=== PATIENT | male | born 1975 | race African-American/Black ===

== ENCOUNTER 2017-06-20 18:10 | Inpatient (IN) | payer MEDICAID ==
[~2017-06-20] VITALS: Ht 172.7 cm; Wt 59.9 kg
[~2017-06-20 18:10] MED LIST: ADVAIR DISKUS1 DS1 IH; CLINDAMYCIN HC300 MG PO; COL100 PO; DOXYCYCLINE MO100 MG PO; KEP500 PO; KLO1 PO; KLONOPIN1 MG PO; LAC PO; LEVAQUIN750 MG PO; LORAZEPAM1 PO; MEDDP PO; MULTIVITAMIN1 SGL PO; NORCO1 TA2 PO; QUETIAPINE FUM200 MG PO; SEROQUEL PO; SEROQUEL100 MG PO; SEROQUEL400 M1 PO; SEROQUEL50 MG PO; TYLENOL W/CODEI30 M
--- NOTE | 2017-06-20 18:22 | NUR ---
PT BIB [facility] FOR SEIZURE, PT CAME FROM [facility] WHO IS CURRENTLY ON A 72 HOUR HOLD, [facility] SITTER AT BEDSIDE, PER MEDIC PT APPROACHED STAFF AND HAD 2 SEIZURE EPISODES AFTER PT WAS ASSISTED TO THE GROUND, PER MEDIC EPISODE LASTED FOR 1 MINUTE, MEDIC REPORTS NO POST ICTAL PHASE, STS PT HAD ANOTHER EPISODE WHICH LASTED APPROX 20 SECONDS EN ROUTE, MEDIC REPORTS [facility] STAFF ADMINISTERED 2 MG ATIVAN IM, PER MEDIC HR 106 OTHERWISE VSS EN ROUTE WITH BS 102, PT ARRIVED APPEARING LETHARGIC BUT EASILY AROUSABLE TO VERBAL STIMULI, PT AAOX3, PT REORIENTED TO PLACE, PT REPORTS "I USED TO BE ON KEPPRA, KLONOPIN AND SEROQUEL BUT I BEEN OUT FOR 3 WEEKS", PT RESP EVEN AND UNLABORED, IN NO ACUTE DISTRESS, IN FULL VIEW OF NURSING STATION AND [facility] SITTER AT BEDSIDE, SIDE RAILS UPX2 WITH SEIZURE PADS IN PLACE, PT PLACED ON FULL MONITORS, CALL LIGHT WITHIN REACH
--- NOTE | 2017-06-20 18:46 | NUR ---
MSE COMPLETED BY DR. ROBIN, LAB AT BEDSIDE FOR BLOOD DRAW AT THIS TIME, SITTER AT BEDSIDE
--- NOTE | 2017-06-20 18:54 | NUR ---
PER DR. ROBIN PT AWAKE, NO NEED FOR BAIG CATHETER IF PT IS ABLE TO PROVIDE URINE SAMPLE ON HIS OWN
--- NOTE | 2017-06-20 19:15 | NUR ---
PT TAKEN TO CT VIA [facility].
[2017-06-20 19:23] LABS: PLATELET COUNT 218 x10^3mcL (130-400)
[2017-06-20 19:32] LABS: CALCIUM 8.7 mg/dL (8.5-10.1); CHLORIDE SERUM 105 mmol/L (98-107); CREATININE SERUM 0.8 mg/dL (0.7-1.3); GFR1 > 60 mL/min; GLUCOSE SERUM 112 mg/dL (74-106); SODIUM SERUM 142 mmol/L (136-145)
[2017-06-20 19:33] LABS: ALBUMIN 4.1 g/dL (3.4-5.0); CARBON DIOXIDE 27.3 mmol/L (21-32); POTASSIUM SERUM 3.8 mmol/L (3.5-5.1)
[2017-06-20 19:38] LABS: RED CELL DISTRIBUTION WIDTH 25.2 % (11.5-14.5)
[2017-06-20 19:44] LABS: ALKALINE PHOSPHATASE 43 U/L (46-116); ALT/SGPT 28 U/L (16-63); BILIRUBIN TOTAL 0.23 mg/dL (0.20-1.00); TOTAL PROTEIN, SERUM 7.4 g/dL (6.4-8.2)
[2017-06-20 20:01] LABS: BAND NEUTROPHIL 1 % (0-10); BASOPHIL 0 % (0-2); MONOCYTE 10 % (0-7); SEGMENTED NEUTROPHILS 38 % (37-75); ovalocyte/elliptocyte 1+; rbc morphology (normal/abnorm) ABNORMAL (NORMAL); target cell (codocyte) 1+
[2017-06-20 20:02] LABS: PLATELET MORPHOLOGY PLATELETS NORMAL
[2017-06-20 20:09] LABS: CHOLESTEROL 202 mg/dL (<200)
--- NOTE | 2017-06-20 20:10 | NUR ---
MEDICATED PT FOR "ITCHINESS" AND INITIATED BANANNA BAG @250ML/HR. PLEASE SEE EMAR.
--- NOTE | 2017-06-20 20:18 | NUR ---
PT REFUSED BAIG. PER PT, "I CAN PEE ON MY OWN". DR ROBIN MADE AWARE.
[2017-06-20 20:21] LABS: AST/SGOT 25 U/L (15-37)
[2017-06-20 20:35] LABS: microscopic required? YES; urine erythrocyte NEGATIVE (NEGATIVE)
[2017-06-20 20:44] LABS: AMPHETAMINE QUAL UR NONE DETECTED (NEG <=1000)
[2017-06-20 20:54] LABS: CHOLESTEROL/HDL RATIO 1.8; MAGNESIUM 1.8 mg/dL (1.8-2.4); PHOSPHOROUS 3.7 mg/dL (2.5-4.9)
[2017-06-20 20:57] LABS: T3 TOTAL 0.78 ng/mL
--- NOTE | 2017-06-20 21:03 | NUR ---
REPORT GIVEN TO ELIECER WHITTAKER TO ASSUME TO CARE OF THE PT.
[2017-06-20 21:06] LABS: FREE T4 0.75 ng/dL (0.76-1.46); FREE THYROXINE INDEX 1.9 ug/dL (1.4-4.5)
[2017-06-20 21:58] VITALS: BP 96/61
--- NOTE | 2017-06-20 22:10 | NUR ---
RECEIVED PATIENT FROM ED VIA GUERNEY, PATIENT DROWSY REACTIVE TO VERBAL STIMULI, WATERWORKS PUMP STATION OPERATOR FROM [facility] AT BEDSIDE, TELE # 15 SR, IV ACCESS TO LEFT FOOT, NO C/O PAIN AT THIS TIME, ORIENTED PATIENT TO ROOM AND SURROUNDINGS, BED IN LOW POSITION, BED RAILS UP X 2, CALL LIGHT WITHIN REACH, WILL EDORSE CARE TO PRIMARY NURSE PANFILO GONZÁLES
--- NOTE | 2017-06-20 22:20 | NUR ---
[facility] PT DROWSY, BUT AROUSABLE WITH VERBAL STIMULI. SZ PRECAUTIONS IN PLACE. PT DENIES SUICIDAL IDEATION AT THIS TIME. TELE #15, NSR, DENIES CHEST PAIN. PULSES PALPABLE, NO EDEMA PRESENT. LUNG SOUNDS CTA, BREATHING ON RA, NO RESP DISTRESS NOTED. ABD SOFT AND NONDISTENDED, BOWEL SOUNDS ACTIVE. VOIDS ADEQUATELY. GENERALIZED WEAKNESS. SKIN IS INTACT. NO PAIN OBSERVED AT THIS TIME. BANANA BAG INFUSING TO LEFT FOOT. ORIENTED PT TO ROOM AND SURROUNDINGS. BED IN LOWEST SETTINGS, SIDE RAILS UP X2, CALL LIGHT WITHIN REACH. SITTER AT BEDSIDE. WILL CONTINUE TO MONITOR.
--- NOTE | 2017-06-21 03:51 | NUR ---
PT APPEARS RESTLESS AND MILDLY AGITATED. PT REQUESTING ATIVAN AT THIS TIME. ADMINISTERED ATIVAN ORDERED. WILL CONTINUE TO MONITOR. NO RESP DISTRESS OBSERVED. SITTER AT BEDSIDE.
[2017-06-21 06:21] VITALS: BP 101/62
[2017-06-21 06:38] LABS: BASOPHIL % 0.7 % (0-2); PLATELET COUNT 177 x10^3mcL (130-400)
[2017-06-21 06:42] LABS: CALCIUM 8.1 mg/dL (8.5-10.1); CARBON DIOXIDE 23.6 mmol/L (21-32); CHLORIDE SERUM 107 mmol/L (98-107); CREATININE SERUM 0.8 mg/dL (0.7-1.3); GFR1 > 60 mL/min; GLUCOSE SERUM 82 mg/dL (74-106); MAGNESIUM 2.1 mg/dL (1.8-2.4); PHOSPHOROUS 3.1 mg/dL (2.5-4.9); POTASSIUM SERUM 4.2 mmol/L (3.5-5.1); SODIUM SERUM 141 mmol/L (136-145)
[2017-06-21 06:48] LABS: RED CELL DISTRIBUTION WIDTH 25.5 % (11.5-14.5)
--- NOTE | 2017-06-21 07:36 | NUR ---
PT SLEPT WELL THROUGHOUT THE NIGHT. SEIZURE PRECAUTIONS MAINTAINED. NO SEIZURE ACTIVITY NOTED DURING SHIFT. NO RESP DISTRESS NOTED, NO SIGNS OF PAIN OBSERVED. IVF INFUSING WELL. SITTER AT BEDSIDE. CALL LIGHT WITHIN REACH. CARE ENDORSED TO AM NURSE.
--- NOTE | 2017-06-21 07:43 | NUR ---
RECEIVED PT SITTING UP IN BED PREPARING TO EAT BREAKFAST. SPEECH IS CLEAR. STATES THAT HE FEELS A LITTLE BETTER SINCE HE WAS ABLE TO GET SOME SLEEP. IV TO L FOOT APPEARS PATENT AND IS INFUSING WELL. SITTER AT BED SIDE. NO REPORTED SEIZURE ACTIVITY SINCE ADMISSION ACCORDING TO EXPORT SALES ASSISTANT. BED IN LOWEST POSITION. CALL LIGHT WITHIN REACH. ENCOURAGED TO CALL FOR ASSISTANCE WHEN NEEDED. WILL CONTINUE TO MONITOR
--- NOTE | 2017-06-21 08:35 | NUR ---
AM ROUNDS DONE. PER DR. REED, PT WILL TRANSFER TO ANOTHER FACILITY DUE TO THE [facility]ALTH[facility]ARE [facility] PT IS APART OF. PT WAS AWAKE AND ALERT AT THIS TIME, AND AGREES TO PLAN OF CARE.
--- NOTE | 2017-06-21 08:45 | NUR ---
PT C/O BACK AND NECK PAIN 04/01. ENCOURAGED PT TO REPOSITION FOR COMFORT AND TO TAKE DEEP BREATHES TO ENCOURGE RELAXATION. GIVEN MORPHINE IVP PRN. CALL LIGHT WITHIN REACH, SITTER AT BEDSIDE. WILL CONTINUE TO MONITOR
[2017-06-21 09:29] VITALS: BP 109/71
--- NOTE | 2017-06-21 11:06 | NUR ---
PT RESTING IN BED WATCHING TV. NO APPARENT SIGNS OF ACUTE DISTRESS NOTED AT THIS TIME. RESPIRATIONS EVEN AND UNLABORED. SITTER AT BED SIDE. CALL LIGHT WITHIN REACH. BED IN LOWEST POSITION. WILL CONTINUE TO MONITOR
--- NOTE | 2017-06-21 12:33 | NUR ---
IN PT'S ROOM ACTING SITTER AT THIS TIME. PT IS CURRENTLY ASLEEP RESTING, NO APPARENT SIGNS OF ACUTE DISTRESS NOTED; RESPIRATIONS EVEN AND UNLABORED. IV APPEARS PATENT AND IS INFUSING WELL TO L FOOT WHICH WAS PUT IN IN THE ER YESTERDAY.
--- NOTE | 2017-06-21 12:50 | NUR ---
DISCHARGE PLANNING STAFF CAME IN A WOKE UP PT ABRUPTLY. UPON WAKING UP FROM NAP, PT STATED THAT HE FELT VERY ANXIOUS. PROVIDED SUPPORT AND VENTILATION OF FEELINGS, AND ENCOURAGED TO TAKE DEEP BREATHES. GAVE PT ATIVAN IVP PRN. TRAFFIC DIRECTOR IS CURRENTLY SITTING AT [facility] SITTER, WILL CONTINUE TO MONITOR
--- NOTE | 2017-06-21 13:12 | NUR ---
PT STATED THAT HE WAS STILL HUNGRY. WAS GIVEN SANDWICH
[2017-06-21 17:00] VITALS: BP 111/72
--- NOTE | 2017-06-21 19:15 | NUR ---
PT A/O X4. SEIZURE PRECAUTIONS IN PLACE. PT DENIES SUICIDAL IDEATION AT THIS TIME. TELE #15, NSR AT 77, DENIES CHEST PAIN. PULSES PALPABLE, NO EDEMA PRESENT. LUNG SOUNDS CTA, ON RA, DENIES SOB. BOWEL SOUNDS ACTIVE, ABD SOFT AND NONDISTENDED, DENIES N/V. VOIDS ADEQUATELY. GENERALIZED WEAKNESS. SKIN IS INTACT. PT DENIES PAIN AT THIS TIME. IVF INFUSING WELL TO RIGHT FOOT, NS @ 100 ML/HR. SITTER AT BEDSIDE. BED IN LOWEST SETTING, SIDE RAILS UP X2, CALL LIGHT WITHIN REACH. WILL CONITNUE TO MONITOR.
[2017-06-21 21:00] VITALS: BP 122/78
--- NOTE | 2017-06-21 21:58 | NUR ---
PT IS VERY AGITATED AT THIS TIME. PT STATES HE WANTS TO "GO OUTSIDE TO SMOKE CIGARETTES." PT ATTEMPTING TO LEAVE THE HOSPITAL. INSTRUCTED PT TO REMAIN IN BED FOR HIS SAFETY AND TO TAKE DEEP BREATHS FOR RELAXATION. ADMINISTERED ATIVAN IV ORDERED. SITTER AT BEDSIDE. WILL CONTINUE TO MONITOR.
--- NOTE | 2017-06-22 01:46 | NUR ---
PT ASLEEP AT THIS TIME, BREATHING EVEN AND UNLABORED WITH NO RESP DISTRESS NOTED. NO SIGNS OF PAIN OBSERVED. IVF INFUSING WELL. SITTER AT BEDSIDE. WILL CONTINUE TO MONITOR.
--- NOTE | 2017-06-22 06:29 | NUR ---
PT SLEPT AT INTERVALS THROUGHOUT THE NIGHT. PT WAS AGITATED AT TIMES, MEDICATED WITH ATIVAN ORDERED. NO RESP DISTRESS NOTED, NO SIGNS OF PAIN OBSERVED. IVF INFUSING WELL. SITTER AT BEDSIDE. WILL ENDORSE CARE TO AM NURSE.
[2017-06-22 06:38] LABS: CALCIUM 8.8 mg/dL (8.5-10.1); CARBON DIOXIDE 26.8 mmol/L (21-32); CHLORIDE SERUM 108 mmol/L (98-107); CREATININE SERUM 0.9 mg/dL (0.7-1.3); GFR1 > 60 mL/min; GLUCOSE SERUM 88 mg/dL (74-106); MAGNESIUM 1.7 mg/dL (1.8-2.4); PHOSPHOROUS 4.1 mg/dL (2.5-4.9); POTASSIUM SERUM 3.8 mmol/L (3.5-5.1); SODIUM SERUM 142 mmol/L (136-145)
[2017-06-22 06:55] LABS: PLATELET COUNT 181 x10^3mcL (130-400)
[2017-06-22 06:58] LABS: RED CELL DISTRIBUTION WIDTH 25.5 % (11.5-14.5)
--- NOTE | 2017-06-22 07:25 | NUR ---
PT SEEN REST ON BED WITH SITTER AT BED SIDE. PT STAYED CALM AT THIS TIME. NO COMPLAIN OF PAIN AND ANXIETY. PT BREATHING ON RA, EVEN,UNLABORED. IV SITE ON R FOOT PATENT, INTACT. IVF INFUSING WELL.
[2017-06-22 07:45] VITALS: BP 113/89
--- NOTE | 2017-06-22 07:46 | NUR ---
PT IS EATING BREAKFAST. PT STATED HE STILL HAVING THE THOUGHT TO HARM HIMSELF, BECAUSE HE FEELING ANXIOUS AND HEARING VOICE SOMETIMES. SITTER AT BED SIDE. WILL CONTINUE TO MONITOR.
[2017-06-22 09:35] LABS: ATYPICAL LYMPH 6 %; MONOCYTE 6 % (0-7); SEGMENTED NEUTROPHILS 40 % (37-75); rbc morphology (normal/abnorm) ABNORMAL (NORMAL)
--- NOTE | 2017-06-22 10:05 | NUR ---
PT COMPLAIN OF AXIOUS, HAVING HARM SELF THOUGHT. ATIVAN IVP GIVEN PER PRN ORDER.
--- NOTE | 2017-06-22 11:28 | NUR ---
PT COMPLAIN OF BACK AND NECK PAIN, DILAUDID 2MG TAB GIVEN PER PRN ORDER. SITTER AT BED SIDE.
--- NOTE | 2017-06-22 12:40 | NUR ---
SITTER AT BED SIDE, ASSISTED PT CLEAN WITH WET CLOTH. CHANGED BED SHEETS. PT STAY CALM AT THIS TIME. WILL CONTINUE TO MONITOR.
[2017-06-22 12:44] VITALS: BP 112/73
--- NOTE | 2017-06-22 15:37 | NUR ---
PT REPORTED HAVING ITCHINESS TO FULL BODY. DR MON MADE AWARE.
--- NOTE | 2017-06-22 15:41 | NUR ---
MEDICATED PT WITH BENADRYL 50MG PO PER DR ORDER FOR ITCHINESS
[2017-06-22 17:54] VITALS: BP 112/73
--- NOTE | 2017-06-22 17:59 | NUR ---
PT IS CLEARED BY DR. ENRIQUEZ. SITTER IS REMOVED. PT IS WAITING FOR HIS PERSONAL [facility].
[2017-06-22] MEDS ORDERED: CLONAZEPAM2 MG PO (19:50)
[2017-06-22] MEDS ORDERED: SEROQUEL100 MG PO (19:50)
[2017-06-22] MEDS ORDERED: KEPPRA500 MG PO (19:51)
[2017-06-22] MEDS ORDERED: SEROQUEL400 M1 PO (19:51)
--- NOTE | 2017-06-22 20:25 | NUR ---
RECEIVED REPORT FROM DAY SHIFT RN. PT IS LYING IN BED IN POSITION OF COMFORT. PT IS A&O X4. PT ABLE TO FOLLOW COMMANDS, ABLE TO MAKE NEEDS KNOWN. TELE MONITOR #15. LUNG SOUNDS ARE CLEAR TO BILAT UPPER LOBES AND TO BILAT BASES OF LOBES VIA AUSCULTATION. CHEST RISE IS EQUAL AND SYMMETRICAL. BREATHING IS EVEN AND UNLABORED. PT HAS GENERALIZED WEAKNESS BUT IS ABLE TO AMBULATE. R FOOT IV PATENT, INFUSING 100 ML/HR OF NS. HOB AT 45 DEGREES. BED IN LOWEST POSITION. CALL LIGHT WITHIN REACH. WILL CONTINUE TO MONITOR FOR ANY ACUTE CHANGES.
--- NOTE | 2017-06-22 22:05 | NUR ---
PER DR HURTADO ORDER, PT WILL BE D/C IN AM D/T TRANSPORTATION ISSUES. PT IN AGREEANCE WITH POC.
--- NOTE | 2017-06-23 00:38 | NUR ---
PT IS LYING IN BED IN POSITION OF COMFORT. CHEST RISE IS EQUAL AND SYMMETRICAL. BREATHING IS EVEN AND UNLABORED. HR STABLE. NO S/S OF PAIN OR DISTRESS NOTED. HOB AT 30 DEGREES. BED IN LOWEST POSITION. CALL LIGHT WITHIN REACH. WILL CONTINUE TO MONITOR FOR ANY ACUTE CHANGES.
--- NOTE | 2017-06-23 06:58 | NUR ---
PT IS LYING IN BED. NO S/S OF PAIN OR DISTRESS NOTED. CHEST RISE IS EQUAL AND SYMMETRICAL. BREATHING IS EVEN AND UNLABORED. WILL ENDORSE PT CARE TO DAY SHIFT RN.
--- NOTE | 2017-06-23 07:30 | NUR ---
PT RECEIVED AND SEEN. PATIENT IS AAOX4. APPEARS CALM AT THIS TIME. NO THOUGHTS OF SELF HARM. TELE MONITOR IN PLACE. PATIENT IS AMBULATORY. RESPIRATIONS EVEN AND UNLABORED ON ROOM AIR. BOWEL SOUNDS ACTIVE. SKIN INTACT. IV INFUSING PER ORDER IN R FOOT, APPEARS WNL. PATIENT IS CURRENTLY WAITING FOR HIS BELONGINGS TO BE DELIVERED FROM [facility] BEFORE DISCHARGE. WILL CONTINUE TO MONITOR. CALL LIGHT WITHIN REACH.
--- NOTE | 2017-06-23 10:41 | NUR ---
PATIENT REFUSED MG IV (SEE EMAR), DR HACKETT MADE AWARE. TO ENTER ORDER FOR PO MG (SEE EMAR). WILL UPDATE ELIECER CHERRY.
[2017-06-23 10:58] VITALS: BP 112/73
--- NOTE | 2017-06-23 11:37 | NUR ---
PT HAS BEEN DISCHARGED. DISCHARGE TEACHING PERFORMED AT THIS TIME. PATIENT RECEIVED DISCHARGE PACKET AND PRESCRIPTIONS FOR MEDICINE. PATIENT STATED THAT HE RECEIVED ALL OF HIS BELONGINGS FROM [facility]. IV IN R FOOT WAS REMOVED. CATHETER REMOVED INTACT, PRESSURE WAS APPLIED FOR 1 MINUTE AND COVERED WITH STERILE GAUZE BANDAGE AND TAPE. NO BLEEDING NOTED. TELE MONITOR RETURNED. PATIENT HAS BEEN ESCORTED OUT BY HOSPITAL STAFF MEMBERS AND EXITED SAFELY. ALL BELONGINGS WERE REMOVED FROM ROOM.
== END 2017-06-23 11:45 | disposition home or self-care (01) | DRG 53 ==
LOC: ED 18:10 → DU 19:56
PROVIDERS: Family Medicine; Specialist; ADMIT Family Medicine
DX: G40.909 Epilepsy, unspecified, not intractable, without status epilepticus (principal); N17.0 Acute kidney failure with tubular necrosis; G92 Toxic encephalopathy; F33.2 Major depressive disorder, recurrent severe without psychotic features; R45.851 Suicidal ideations; E83.42 Hypomagnesemia; D50.9 Iron deficiency anemia, unspecified; F10.229 Alcohol dependence with intoxication, unspecified; F12.20 Cannabis dependence, uncomplicated; T42.6X6A Underdosing of other antiepileptic and sedative-hypnotic drugs, initial encounter; T42.4X6A Underdosing of benzodiazepines, initial encounter; T51.0X1A Toxic effect of ethanol, accidental (unintentional), initial encounter; F10.239 Alcohol dependence with withdrawal, unspecified; E78.5 Hyperlipidemia, unspecified; F17.210 Nicotine dependence, cigarettes, uncomplicated; Z68.20 Body mass index [BMI] 20.0-20.9, adult; Z91.14 Patient's other noncompliance with medication regimen; Y90.8 Blood alcohol level of 240 mg/100 ml or more; Y92.230 Patient room in hospital as the place of occurrence of the external cause
CPT/HCPCS: 83880; 84439; G0480; J1200; J2060; J2270; J3411; J3475; J3490; J7030; Q0163

== ENCOUNTER 2017-07-01 23:11 | Inpatient (IN) | payer MEDICAID ==
[~2017-07-01] VITALS: Ht 167.6 cm; Wt 54.9 kg
[~2017-07-01 23:11] MED LIST changes: +CLONAZEPAM2 MG PO; +KEPPRA500 MG PO
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
[2017-07-02 00:40] LABS: CALCIUM 8.7 mg/dL (8.5-10.1); CARBON DIOXIDE 23.9 mmol/L (21-32); CHLORIDE SERUM 109 mmol/L (98-107); CREATININE SERUM 0.8 mg/dL (0.7-1.3); GFR1 > 60 mL/min; GLUCOSE SERUM 95 mg/dL (74-106); POTASSIUM SERUM 3.7 mmol/L (3.5-5.1); SODIUM SERUM 146 mmol/L (136-145)
[2017-07-02 00:46] LABS: ALBUMIN 3.9 g/dL (3.4-5.0); ALKALINE PHOSPHATASE 56 U/L (46-116); ALT/SGPT 31 U/L (16-63); AST/SGOT 36 U/L (15-37); BILIRUBIN TOTAL 0.4 mg/dL (0.20-1.00); TOTAL PROTEIN, SERUM 7.3 g/dL (6.4-8.2)
--- NOTE | 2017-07-02 00:48 | NUR ---
PT CAME BACK FROM RADIOLOGY VIA [facility]. NO DISTRESS.
--- NOTE | 2017-07-02 01:27 | NUR ---
PT RESTING CALM COOPERATIVE AWAIT RESULTS AND DISPO
--- NOTE | 2017-07-02 01:28 | NUR ---
AGENCY DOCUMENTATION DONE BY Staff Name/Title - :GARDENIA TORRES MyLorryyasmin User ID - : Agency Name - :[facility] Time Documented - From - : To - :
--- NOTE | 2017-07-02 01:47 | NUR ---
PT MEDICATED PER MD ORDER CALM COOPERATIVE, VSS
[2017-07-02 02:00] LABS: AMPHETAMINE QUAL UR NONE DETECTED (NEG <=1000)
--- NOTE | 2017-07-02 02:30 | NUR ---
PT IN SVT MD CALLED TO BEDSIDE IV SL STARTED IVF UP MEDS GIVEN PER MD
--- NOTE | 2017-07-02 03:27 | NUR ---
PT GIVEN 25MG CARDIZEM PER MD ORDER
--- NOTE | 2017-07-02 03:34 | NUR ---
PT MORE ALERT HR RETURNING TO NORMAL CONT TO MONITOR
[2017-07-02 04:39] LABS: PHOSPHOROUS 3.3 mg/dL (2.5-4.9)
[2017-07-02 04:40] LABS: CHOLESTEROL/HDL RATIO 1.7
[2017-07-02 04:48] LABS: T3 TOTAL 0.61 ng/mL
[2017-07-02 04:52] LABS: FREE T4 0.74 ng/dL (0.76-1.46); FREE THYROXINE INDEX 2.4 ug/dL (1.4-4.5)
--- NOTE | 2017-07-02 04:57 | NUR ---
REPORT TO ANIMAL CARE SERVICE WORKERELIECER CESAR, ALL QUESTIONS ASKED AND ANSWERED PT TRANSFERED TO ICU BED 4 VIA RNEY IN STABLE CONDITION W/ ALL PERSONAL BELONGINGS
--- NOTE | 2017-07-02 05:00 | NUR ---
PT ARRIVED ON GURNEY WITH ED NURSE. PT IS AOX3. PT SPEECH IS SLURRED. PT WITHDRAWS TO PAINFUL STIMULI. GAG REFLEX NOTED. NO S/S OF HEADACHE NOTED. BILAT PUPILLARY RESPONSE 3MM, BRISK. PT FOLLOWS COMMANDS. PT HAS LEFT EXTERNAL IV TO JUGULAR, PATENT TO FLUSH, DRESSING CDI. ORAL MUCOSA PINK AND DRY, TRACHEA MIDLINE. NO EENT DRAINAGE NOTED AT THIS TIME. S1 S2 NOTED. HEART TONES AND RHYTHM REGULAR. CHEST WALL STABLE AND INTACT. NO S/S OF SYNCOPE, CHEST PAIN, OR DIZZINESS. ABDOMEN IS FLAT, SOFT AND NONTENDER TO PALPATION. ACTIVE BOWEL SOUNDS NOTED TO ALL 4 QUADRANTS. NO BM NOTED AT THIS TIME. NO PENILE DISCHARGE OR SCROTAL EDEMA NOTED AT THIS TIME. NO EDEMA NOTED. SKIN COLOR IS CONSISTENT WITH ETHNICITY. SKIN IS DRY AND WARM TO PALPATION. MODERATE PERIPHERAL PULSES NOTED TO BUE, BLE. CAP REFILL BRISK. WILL CONTINUE TO PROVIDE CARE PER PROTOCOL.
[2017-07-02 05:01] LABS: ALBUMIN 3.5 g/dL (3.4-5.0); ALKALINE PHOSPHATASE 42 U/L (46-116); ALT/SGPT 29 U/L (16-63); AST/SGOT 41 U/L (15-37); CALCIUM 8.2 mg/dL (8.5-10.1); CARBON DIOXIDE 26.8 mmol/L (21-32); CHLORIDE SERUM 110 mmol/L (98-107); CREATININE SERUM 0.8 mg/dL (0.7-1.3); GFR1 > 60 mL/min; GLUCOSE SERUM 103 mg/dL (74-106); POTASSIUM SERUM 3.6 mmol/L (3.5-5.1); SODIUM SERUM 147 mmol/L (136-145); TOTAL PROTEIN, SERUM 6.8 g/dL (6.4-8.2)
[2017-07-02 06:01] VITALS: BP 180/70
[2017-07-02 07:07] LABS: PLATELET COUNT 239 x10^3mcL (130-400)
--- NOTE | 2017-07-02 07:23 | NUR ---
PT IS AOX3. PT IS CURRENTLY SLEEPING. EXTERNAL IV TO LEFT JUGULAR, PATENT TO FLUSH, DRESSING CDI. PT FOLLOWS COMMANDS, PT SPEECH IS SLURRED. PT WITHDRAWS TO PAINFUL STIMULI. PT OPENS EYES TO TACTILE STIMULI. NO S/S OF HEADACHE. ORAL MUCOSA PINK AND DRY, EXTERNAL IV TO LEFT JUGULAR. TRACHEA MIDLINE. NO EENT DRAINAGE NOTED AT THIS TIME. S1 S2 NOTED. HEART TONES AND RHYTHM REGULAR. CHEST WALL STABLE AND INTACT. NO S/S OF CHEST PAIN, SYNCOPE, OR DIZZINESS. ACTIVE BOWEL SOUNDS NOTED TO ALL 4 QUADRANTS. ABDOMEN IS FLAT, SOFT AND NONTENDER TO PALPATION. NO BM NOTED AT THIS TIME. NO PENILE DISCHARGE OR SCROTAL EDEMA NOTED AT THIS TIME. NO EDEMA NOTED. MODERATE PERIPHERAL PULSES NOTED TO BUE, BLE. CAP REFILL BRISK. SKIN IS DRY AND WARM TO PALPATION. SKIN COLOR IS CONSISTENT WITH ETHNICITY. PROVIDED REPORT TO NURSE MIN.
--- NOTE | 2017-07-02 08:22 | NUR ---
SPOKE TO CASE MANAGEMENT FROM [employer]. PER NETWORK DIRECTOR PT IS NOT ELIBIBLE FOR TRANSFER UNTIL MEDICALLY CLEARED.
[2017-07-02 08:34] VITALS: BP 122/80
--- NOTE | 2017-07-02 08:48 | NUR ---
PT IS AOX2 ABLE TO FOLLOW VERBAL COMMANDS AND MAKE NEEDS KNOWN. BL PUPILS ARE REACTIVE TO LIGHT 3MM, BRISK. PT'S SPEECH IS GARBLE. PT HAS LEJ INTACT AND PATENT. NO SIGNS OF JVD. PT DENIES CHEST PAIN AND HEART PALPATIATION. PT ON RA, BL LUNG SOUNDS CTA. SYMMETRICAL CHEST RISE. TENDER PALPATION TO ABD 5/10, SHARP PAIN. DENIES PAIN MEDICATION. NO SIGNS OF BM. PT IS ABLE TO TURN SELF. PT DENIES WANTING OR HAVE PLANS TO HURT SELF OR OTHERS. BED AT LOW AND CALL LIGHT WITHIN REACH.
--- NOTE | 2017-07-02 09:00 | NUR ---
DRILLING SUPERVISOR AT BEDSIDE.
--- NOTE | 2017-07-02 09:15 | NUR ---
, MYSELF AND PRIMARY RN ROUNDING AT THIS TIME. NO NEW ORDERS AT THIS TIME. PT TO HAVE PSYCH EVAL. TO ORDER CARDIAC DIET.
[2017-07-02 10:06] LABS: ATYPICAL LYMPH 5 %; MONOCYTE 6 % (0-7); SEGMENTED NEUTROPHILS 56 % (37-75)
[2017-07-02 10:07] LABS: PLATELET MORPHOLOGY N; rbc morphology (normal/abnorm) ABNORMAL (NORMAL)
--- NOTE | 2017-07-02 10:30 | NUR ---
DR. ALCALA IS AT NURSING STATION TO UPDATE PLAN OF CARE.
[2017-07-02 11:31] VITALS: BP 113/69
--- NOTE | 2017-07-02 11:40 | NUR ---
PT IS RESTING IN BED AND DENIES CHEST PAIN AND HEART PALPITATIONS. PT IS DROWSY AND ORIENTED TO SELF. PT IS ABLE TO FOLLOW VERBAL COMMANDS AND MAKE NEEDS KNOWN. PT ON RA AND CTA TO BL LUNG MORRIS. NONTENDER PALPATIONS TO ABD. PT IS ABLE TO VOID WITH URINAL AT BEDSIDE. PT ATE A TURKEY SANDWHICH AND TOLERATED WELL. NO SIGNS OF N/V. PT DENIES ANY PAIN OR DISCOMFORT. BED AT LOW AND CALL LIGHT WITHIN REACH.
[2017-07-02 15:09] LABS: microscopic required? NO
[2017-07-02 15:27] LABS: urine erythrocyte NEGATIVE (NEGATIVE)
--- NOTE | 2017-07-02 15:34 | NUR ---
TEMP 101.2 STARTED COOLING MEASURES BY LEAVING PT WITH ONE SHEET AND COLD COMPRESS TO NECK AND BL ARM PITS. WILL MEDICATE PER EMAR.
[2017-07-02 15:44] VITALS: BP 141/78
--- NOTE | 2017-07-02 17:00 | NUR ---
AT BEDSIDE, UPDATES PROVIDED. PER PT PREVIOUS A.FIB WAS A RESULT OF DEHYDRATION. NO NEW ORDERS AT THIS TIME. PRIMARY RN MADE AWARE.
--- NOTE | 2017-07-02 19:20 | NUR ---
RECEIVED REPORT FROM MIN RN, UPDATES PROVIDED, WILL ASSUME TOTAL CARE.
[2017-07-02 19:25] VITALS: BP 131/87
--- NOTE | 2017-07-02 19:25 | NUR ---
RECEIVED PATIENT RESTING. UPON ASSESSMENT, PATIENT IS DROWSY, ABLE TO AROUSE WITH GENTLE STERNAL RUB PATIENT OPENS EYES TO TACTILE STIMULATION, LOCALIZES TO PAIN (STERNAL RUB) AND FOLLOWS COMMANDS. PUPILS 3MM AND BRISK REACTION TO LIGHT BILATERALLY. LEJ IN PLACE, PATENT, CDI TO DRESSING. NO DRAINAGE FROM EENT. PATIENT BREATHING EVEN AND UNLABORED VIA ROOM AIR. NO S/S OF RESPIRATORY DISTRESS AT THIS TIME. LUNG SOUNDS CTA BILAT. CHEST RISES SYMMETRICALLY. S1, S2 AUSCULTATED. PT DENIES CP AT THIS TIME. PERIPHERAL PULSES ARE MODERATE TO BUE AND BLE, CAP REFILL IS <3 SECONDS. NO EDEMA NOTED. SCDS TO BLE. PATIENT HAS GENERALIZED WEAKNESS. PT IS ABLE TO SELF REPOSITION NEEDED. ACTIVE ROM X 4 EXTREMITIES. NO OBVIOUS CONTRACTURES/DEFORMITIES NOTED. PT RECEIVES CARDIAC DIET. NO S/S OF N/V/D. PATIENT'S ABDOMEN IS SOFT, ROUND, AND NONTENDER TO PALPATION. ACTIVE BOWEL SOUNDS X 4Q. NO BM AT THIS TIME. PATIENT IS ABLE TO EMPTY BLADDER PER BEDSIDE URINAL. NO URINE NOTED AT THIS TIME. SKIN IS WTT, DRY, INTACT. NO FAMILY/VISITORS AT THIS TIME. PT DENIES SI. NS INFUSING @ 100 ML/HR. BED IN LOWEST POSITION, SIDE RAILS X 3, CALL LIGHT WITHIN REACH.
[2017-07-02 21:45] VITALS: Ht 167.6 cm; Wt 54.9 kg
[2017-07-02 23:30] VITALS: BP 128/84
[2017-07-03 03:15] VITALS: BP 134/89
[2017-07-03 05:18] LABS: BASOPHIL % 0.3 % (0-2); PLATELET COUNT 189 x10^3mcL (130-400)
[2017-07-03 05:24] LABS: RED CELL DISTRIBUTION WIDTH 25.5 % (11.5-14.5)
[2017-07-03 05:25] LABS: CALCIUM 8.2 mg/dL (8.5-10.1); CARBON DIOXIDE 26.2 mmol/L (21-32); CHLORIDE SERUM 107 mmol/L (98-107); CREATININE SERUM 0.9 mg/dL (0.7-1.3); GFR1 > 60 mL/min; GLUCOSE SERUM 107 mg/dL (74-106); POTASSIUM SERUM 3.5 mmol/L (3.5-5.1); SODIUM SERUM 141 mmol/L (136-145)
--- NOTE | 2017-07-03 05:30 | NUR ---
DR HURTADO AT BEDSIDE, UPDATES PROVIDED, ALL QUESTIONS AND CONCERNS ADDRESSED. PATIENT SLEPT THROUGH THE NIGHT, VITAL SIGNS STABLE, NO C/O PAIN, NO S/S OF DISTRESS. WILL ENDORSE ALL CARE TO DAY SHIFT RN.
[2017-07-03 05:39] LABS: rbc morphology (normal/abnorm) ABNORMAL (NORMAL); tear drop cell (dacryocyte) 1+
--- NOTE | 2017-07-03 07:10 | NUR ---
RECEIVED PT'S REPORT. PT RESTING ON BED, AROUSABLE EASILY WITH VERBAL STIMULI. PT BREATHING ON RA, EVEN, UNLABORED. IV SITE PATENT, INTACT. IVF INFUSING WELL.
--- NOTE | 2017-07-03 07:14 | NUR ---
REPORT GIVEN TO MIN RN, UPDATES PROVIDED, ALL QUESTIONS AND CONCERNS ADDRESSED.
[2017-07-03 07:45] VITALS: BP 145/92
--- NOTE | 2017-07-03 08:20 | NUR ---
DR. ALEXIS IN NURSING STATION TO UPDATE PLAN OF CARE.
[2017-07-03 10:59] LABS: TOTAL IRON BINDING CAPACITY 260 ug/dL (250-450)
[2017-07-03 11:00] LABS: IRON 260 ug/dL (65-170)
[2017-07-03 11:18] LABS: RED BLOOD CELLS 4.11 M/mm3 (4.52-5.90)
[2017-07-03 11:33] VITALS: BP 125/89
--- NOTE | 2017-07-03 14:39 | NUR ---
REPORT GIVEN TO RECEIVING NURSE DIYA. WILL TRANSFER PT TO [facility]ST UNIT TO CONTINUE CARE. PT STAYING CALM AND COOPERATING CARE AT THIS TIME.
--- NOTE | 2017-07-03 15:33 | NUR ---
RECEIVED PT FROM ED. PT IS AWAKE, ALERT, AND ORIENTED X4. SLOW TO RESPOND TO Q&A AT TIMES. PT DENEIS ANY SUICIDAL IDEATION. CLEAR LORRAINE LUNG FIELD, SYMMETRICAL CHEST EXPANSION AND UNLABORED. ACTIVE BOWEL SOUNDS NOTED. NON DISTENDED ABDOMEN. SKIN INTACT. IV ON THE LEFT EJ INFUSING WELL. WILL CONTINUE TO MONITOR
--- NOTE | 2017-07-03 17:34 | NUR ---
PT ON BED, AWAKE, ALERT, AND ORIENTED. PRN PAIN MED GIVEN COVERAGE
--- NOTE | 2017-07-03 19:34 | NUR ---
PT. AWAKE, ALERT, SITTING UP IN BED. ORIENTED X4. DENIES HEADACHE OR DIZZINESS. BREATH SOUNDS CLEAR THROUGHOUT LUNG MORRIS RES. PEVEN, UNLABORED, NO SOB NOTED. ABD. SOFT AND FLAT, BOWEL SOUNDS ACTIVE. NO EDEMA NOTED TO EXTREMITIES. PEDAL PULSES STRONG BLE. LEJ IN-SITU. IVF INFUSING WELL, SITE WNL. PT. DENIES ANY SUICIDAL IDEATIONS PRESENTLY. CALL LIGHT WITHIN REACH. FREQUENT ROUNDS PLANNED.
[2017-07-03 20:34] VITALS: BP 121/77
--- NOTE | 2017-07-04 03:26 | NUR ---
PT. RESTING QUIETLY. SLEEPING. NO SUICIDAL IDEATIONS VERBALIZED THUS FAR. BEHAVIOR APPROPRIATE THUS FAR. COOPERATIVE W/ CARE. CALL LIGHT REMAINS WITHIN REACH.
[2017-07-04 05:41] VITALS: BP 137/80
[2017-07-04 10:02] VITALS: BP 128/96
[2017-07-04] MEDS ORDERED: CLONAZEPAM2 MG PO (10:45)
[2017-07-04 11:24] VITALS: BP 128/96
== END 2017-07-04 12:43 | disposition home or self-care (01) | DRG 816 ==
LOC: ED 23:11 → IC 07-02 03:54 → DU 07-02 03:54 → EDBEDREQSVC 07-02 03:57 → EDBEDREQ 07-02 03:57 → DU 07-03 15:05
PROVIDERS: Emergency Medicine Emergency Medical Services; Student in an Organized Health Care Education/Training Program; ADMIT Family Medicine
DX: T51.0X1A Toxic effect of ethanol, accidental (unintentional), initial encounter (principal); G92 Toxic encephalopathy; E87.0 Hyperosmolality and hypernatremia; F31.5 Bipolar disorder, current episode depressed, severe, with psychotic features; R45.851 Suicidal ideations; E83.51 Hypocalcemia; I48.91 Unspecified atrial fibrillation; G40.909 Epilepsy, unspecified, not intractable, without status epilepticus; F15.10 Other stimulant abuse, uncomplicated; D50.9 Iron deficiency anemia, unspecified; I16.0 Hypertensive urgency; F43.10 Post-traumatic stress disorder, unspecified; F17.210 Nicotine dependence, cigarettes, uncomplicated; F10.229 Alcohol dependence with intoxication, unspecified; F12.20 Cannabis dependence, uncomplicated; E05.90 Thyrotoxicosis, unspecified without thyrotoxic crisis or storm; Z86.73 Personal history of transient ischemic attack (TIA), and cerebral infarction without residual deficits; Y90.8 Blood alcohol level of 240 mg/100 ml or more; Y92.9 Unspecified place or not applicable
CPT/HCPCS: 83880; 84439; G0480; J0153; J0696; J3490; J7030

== ENCOUNTER 2018-07-03 14:26 | Emergency (ER) | payer MEDICAID ==
[~2018-07-03] VITALS: Ht 167.6 cm; Wt 65.8 kg
[2018-07-03 14:41] VITALS: Ht 167.6 cm; Wt 65.8 kg
[2018-07-03 16:54] VITALS: BP 115/75
== END 2018-07-03 16:54 | disposition home or self-care (01) ==
LOC: ED 14:26
DX: R13.10 Dysphagia, unspecified (principal); R06.00 Dyspnea, unspecified; F31.9 Bipolar disorder, unspecified; Z86.73 Personal history of transient ischemic attack (TIA), and cerebral infarction without residual deficits; Z88.6 Allergy status to analgesic agent; Z91.018 Allergy to other foods
CPT/HCPCS: J2930; J3490; Q0163

== ENCOUNTER 2018-07-27 18:39 | Inpatient (IN) | payer MEDICAID ==
[~2018-07-27] VITALS: Ht 167.6 cm; Wt 57.2 kg
[2018-07-27 18:44] VITALS: Ht 167.6 cm; Wt 57.2 kg
[2018-07-27 19:18] LABS: PLATELET COUNT 225 x10^3mcL (130-400)
[2018-07-27 19:30] LABS: CALCIUM 8.7 mg/dL (8.5-10.1); CARBON DIOXIDE 24.4 mmol/L (21-32); CHLORIDE SERUM 106 mmol/L (98-107); CREATININE SERUM 0.9 mg/dL (0.7-1.3); GFR1 > 60 mL/min; GLUCOSE SERUM 87 mg/dL (74-106); POTASSIUM SERUM 3.7 mmol/L (3.5-5.1); SODIUM SERUM 144 mmol/L (136-145)
[2018-07-27 19:34] LABS: RED CELL DISTRIBUTION WIDTH 23.5 % (11.5-14.5)
[2018-07-27 19:41] LABS: ALKALINE PHOSPHATASE 43 U/L (46-116); ALT/SGPT 30 U/L (16-63); AST/SGOT 28 U/L (15-37); BILIRUBIN TOTAL 0.3 mg/dL (0.20-1.00); LIPASE 459 IU/L (73-393); MAGNESIUM 1.9 mg/dL (1.8-2.4); T4(THYROXINE) 4.9 ug/dL (4.7-13.3); TOTAL PROTEIN, SERUM 7.2 g/dL (6.4-8.2)
[2018-07-27 19:42] LABS: AMYLASE 190 U/L (25-115); CHOLESTEROL 240 mg/dL (<200); HDL CHOLESTEROL 126 mg/dL (40-60)
[2018-07-27 20:02] LABS: microscopic required? NO
[2018-07-27 20:10] LABS: BAND NEUTROPHIL 5 % (0-10); BASOPHIL 0 % (0-2); METAMYELOCTE 1 % (0-2); MONOCYTE 5 % (0-7); PLATELET MORPHOLOGY PLATELETS NORMAL; SEGMENTED NEUTROPHILS 65 % (37-75); ovalocyte/elliptocyte 1+; rbc morphology (normal/abnorm) ABNORMAL (NORMAL); target cell (codocyte) 1+
[2018-07-27 20:18] LABS: urine erythrocyte NEGATIVE (NEGATIVE)
[2018-07-27 20:24] LABS: AMPHETAMINE QUAL UR NONE DETECTED (See below)
[2018-07-27] MEDS ORDERED: SEROQUEL200 MG PO (21:18)
[2018-07-27] MEDS ORDERED: KEPPRA500 MG PO (21:19)
[2018-07-27 22:51] VITALS: BP 144/103
[2018-07-28 05:37] VITALS: BP 110/68
[2018-07-28 08:18] VITALS: BP 120/82
[2018-07-28 11:36] LABS: PLATELET COUNT 192 x10^3mcL (130-400)
[2018-07-28 11:42] LABS: RED CELL DISTRIBUTION WIDTH 23.1 % (11.5-14.5)
[2018-07-28 12:06] LABS: CARBON DIOXIDE 26.7 mmol/L (21-32); CHLORIDE SERUM 104 mmol/L (98-107); CREATININE SERUM 0.9 mg/dL (0.7-1.3); GFR1 > 60 mL/min; GLUCOSE SERUM 114 mg/dL (74-106); PHOSPHOROUS 2.8 mg/dL (2.5-4.9); POTASSIUM SERUM 4.2 mmol/L (3.5-5.1); SODIUM SERUM 139 mmol/L (136-145)
[2018-07-28 12:35] LABS: LIPASE 249 IU/L (73-393)
[2018-07-28 12:41] LABS: AMYLASE 123 U/L (25-115)
[2018-07-28 13:30] LABS: BAND NEUTROPHIL 4 % (0-10); BASOPHIL 0 % (0-2); MONOCYTE 4 % (0-7); PLATELET MORPHOLOGY GIANT PLATELET SEEN; SEGMENTED NEUTROPHILS 68 % (37-75); ovalocyte/elliptocyte 1+; rbc morphology (normal/abnorm) ABNORMAL (NORMAL); target cell (codocyte) 1+
[2018-07-28 16:59] VITALS: BP 112/75
[2018-07-28 20:56] VITALS: BP 130/85
[2018-07-29 05:30] VITALS: BP 125/85
[2018-07-29 07:14] LABS: PLATELET COUNT 182 x10^3mcL (130-400)
[2018-07-29 07:29] LABS: CALCIUM 8.8 mg/dL (8.5-10.1); CARBON DIOXIDE 23.3 mmol/L (21-32); CHLORIDE SERUM 106 mmol/L (98-107); CREATININE SERUM 0.7 mg/dL (0.7-1.3); GFR1 > 60 mL/min; GLUCOSE SERUM 91 mg/dL (74-106); LIPASE 370 IU/L (73-393); MAGNESIUM 1.9 mg/dL (1.8-2.4); PHOSPHOROUS 3.2 mg/dL (2.5-4.9); POTASSIUM SERUM 3.6 mmol/L (3.5-5.1); SODIUM SERUM 139 mmol/L (136-145)
[2018-07-29 07:30] LABS: RED CELL DISTRIBUTION WIDTH 23.5 % (11.5-14.5)
[2018-07-29 08:16] VITALS: BP 127/94
[2018-07-29 10:46] LABS: BAND NEUTROPHIL 4 % (0-10); BASOPHIL 0 % (0-2); MONOCYTE 5 % (0-7); SEGMENTED NEUTROPHILS 72 % (37-75)
[2018-07-29 10:48] LABS: PLATELET MORPHOLOGY GIANT PLATELET SEEN; ovalocyte/elliptocyte 1+; rbc morphology (normal/abnorm) ABNORMAL (NORMAL); target cell (codocyte) 1+
[2018-07-29 11:46] VITALS: BP 99/74
[2018-07-29 16:21] VITALS: BP 101/68
[2018-07-29 20:18] VITALS: BP 127/87
[2018-07-30 06:10] VITALS: BP 108/83
[2018-07-30 08:00] VITALS: BP 141/103
[2018-07-30] MEDS ORDERED: FOL1 PO (10:11)
[2018-07-30] MEDS ORDERED: THI100 PO (10:11)
[2018-07-30] MEDS ORDERED: THERA-M CAPLET1 EACH PO (10:12)
[2018-07-30 10:39] LABS: PLATELET COUNT 159 x10^3mcL (130-400)
[2018-07-30 10:51] LABS: CALCIUM 8.6 mg/dL (8.5-10.1); CARBON DIOXIDE 27.7 mmol/L (21-32); CHLORIDE SERUM 105 mmol/L (98-107); CREATININE SERUM 0.8 mg/dL (0.7-1.3); GFR1 > 60 mL/min; GLUCOSE SERUM 96 mg/dL (74-106); MAGNESIUM 1.5 mg/dL (1.8-2.4); PHOSPHOROUS 3.7 mg/dL (2.5-4.9); POTASSIUM SERUM 3.3 mmol/L (3.5-5.1); SODIUM SERUM 139 mmol/L (136-145)
[2018-07-30 11:24] LABS: RED CELL DISTRIBUTION WIDTH 23.6 % (11.5-14.5)
[2018-07-30 12:31] VITALS: BP 135/84
[2018-07-30 13:44] LABS: SEGMENTED NEUTROPHILS 70 % (37-75)
[2018-07-30 13:45] LABS: BAND NEUTROPHIL 5 % (0-10)
[2018-07-30 13:46] LABS: PLATELET MORPHOLOGY PLATELETS NORMAL; rbc morphology (normal/abnorm) ABNORMAL (NORMAL)
== END 2018-07-30 12:50 | disposition home or self-care (01) | DRG 775 ==
LOC: ED 18:39 → MU 21:30 → EDBEDREQ 22:36 → DU 22:40 → MU 22:50 → DU 23:22
PROVIDERS: Emergency Medicine; Internal Medicine
DX: F10.239 Alcohol dependence with withdrawal, unspecified (principal); K85.90 Acute pancreatitis without necrosis or infection, unspecified; F31.30 Bipolar disorder, current episode depressed, mild or moderate severity, unspecified; G40.909 Epilepsy, unspecified, not intractable, without status epilepticus; Y90.8 Blood alcohol level of 240 mg/100 ml or more; F12.10 Cannabis abuse, uncomplicated; F43.10 Post-traumatic stress disorder, unspecified; Z59.0 Homelessness; Z68.23 Body mass index [BMI] 23.0-23.9, adult; Z91.14 Patient's other noncompliance with medication regimen; Z86.73 Personal history of transient ischemic attack (TIA), and cerebral infarction without residual deficits
CPT/HCPCS: 82962; G0480; J1200; J2060; J2930; J3490; J7030; Q0092

== ENCOUNTER 2018-08-19 14:03 | Inpatient (IN) | payer MEDICAID ==
[~2018-08-19] VITALS: Ht 167.6 cm; Wt 57.3 kg
[~2018-08-19 14:03] MED LIST changes: +FOL1 PO; +SEROQUEL200 MG PO; +THERA-M CAPLET1 EACH PO; +THI100 PO
[2018-08-19 14:25] VITALS: Ht 167.6 cm; Wt 57.3 kg
--- NOTE | 2018-08-19 14:48 | NUR ---
PATIENT BROUGHT IN BY PARAMEDICS FOR C/O FEELING ITCHING FOR ONE HOUR. PER SEO ENGINEER PATIENT TOLD PURCHASING MANAGER HE WANTED TO HURT HIMSELF. PATIENT STATES " I WANT TO STAB MYSELF IN THE NECK", REPORTS ITCHING TO SKIN AND THROAT, NO RASH, REDNESS, OR HIVES PRESENT ON SKIN. NO SWELLING TO LIPS OF TONGUE, NO LABORED OR DIFFICULITY BREATHING. ORIGINAL 5150 PLACED IN CHART. PT. IN FULL VIEW OF NURSING STATION, BELONGINGS REMOVED, LABELED AND PLACED IN RADIO ROOM. PATIENT HOOKED UP TO CARDIC MONITOR, SIDE RAILS UP. WILL CONTINUE TO MONITOR.
--- NOTE | 2018-08-19 17:38 | NUR ---
PATIENT MEDICATED WITH BENADRYL, AAOX4 TALKING AND RESPONDING APPROPRIETLY. CALL LIGHT WITHIN REACH. WILL CONTINUE TO MONITOR.
[2018-08-19 17:42] LABS: microscopic required? NO
[2018-08-19 18:02] LABS: CALCIUM 9.9 mg/dL (8.5-10.1); CARBON DIOXIDE 18.2 mmol/L (21-32); CHLORIDE SERUM 106 mmol/L (98-107); CREATININE SERUM 0.9 mg/dL (0.7-1.3); GFR1 > 60 mL/min; GLUCOSE SERUM 118 mg/dL (74-106); POTASSIUM SERUM 4.9 mmol/L (3.5-5.1); SODIUM SERUM 145 mmol/L (136-145)
[2018-08-19 18:15] LABS: ALBUMIN 4.3 g/dL (3.4-5.0); ALKALINE PHOSPHATASE 46 U/L (46-116); ALT/SGPT 25 U/L (16-63); AST/SGOT 24 U/L (15-37); FREE T4 0.61 ng/dL (0.76-1.46)
[2018-08-19 18:26] LABS: TOTAL PROTEIN, SERUM 8.4 g/dL (6.4-8.2)
[2018-08-19 18:30] LABS: AMPHETAMINE QUAL UR NONE DETECTED (See below)
[2018-08-19 18:33] LABS: BILIRUBIN TOTAL 0.1 mg/dL (0.20-1.00)
[2018-08-19 18:33] LABS: UA SPECIFIC GRAVITY <=1.005 (1.005-1.035); urine erythrocyte NEGATIVE (NEGATIVE)
[2018-08-19 18:57] LABS: PLATELET COUNT 243 x10^3mcL (130-400)
--- NOTE | 2018-08-19 19:00 | NUR ---
PT ASKING FOR SEROQUEL TO HELP HIM SLEEP. MADE AWARE
--- NOTE | 2018-08-19 19:10 | NUR ---
REPORT GIVEN TO ELIANA GONZÁLES FOR FURTHER CARE OF PT
--- NOTE | 2018-08-19 19:35 | NUR ---
PATIENT IN BED, WITHIN LINE OF SIGHT OF RN, NO SIGNS AND SYMPTOMS OF ACUTE DISTRESS, CALM AND COOPERATIVE AT THIS TIME. WANTED A DIFFERENT KIND OF SANDWICH, DID NOT LIKE PEANUT BUTTER AND JELLY "THAT STUFF IS NASTY". INFORMED PATIENT THAT IS ALL WE HAD AT THE MOMENT. PATIENT WANTED HIGHER DOSE OF SEROQUEL, DR. BURGESS IS AWARE AND SPOKE TO PATIENT WITH REGARDS TO SEROQUEL ORDER. PATIENT VERBALIZED UNDERSTANDING. PATIENT WANTED URINAL, IT WAS PROVIDED PROMPTLY.
[2018-08-19 19:47] LABS: BAND NEUTROPHIL 2 % (0-10); MONOCYTE 6 % (0-7); SEGMENTED NEUTROPHILS 73 % (37-75)
[2018-08-19 19:48] LABS: BASOPHIL 0 % (0-2); PLATELET MORPHOLOGY PLATELETS NORMAL; ovalocyte/elliptocyte 1+; rbc morphology (normal/abnorm) ABNORMAL (NORMAL); target cell (codocyte) 1+; tear drop cell (dacryocyte) 1+
--- NOTE | 2018-08-19 20:36 | NUR ---
REPORT GIVEN TO ELIECER DUMONT FOR CONTINUITY OF CARE
[2018-08-19 21:00] VITALS: BP 135/84
--- NOTE | 2018-08-19 21:03 | NUR ---
RECEIVED PT FROM ED VIA ABIMAEL. ORIENTED PT TO ROOM AND SURROUNDINGS .IV NOTED TO LEFT FOOT PATETN AND INTACT. TELE 10 PLACED ON PT READING STA. INSTRUCTED PT ON THE USE OF CALL LIGHT FOR ASSISTANCE. ENDORSED PT TO PRIMARY NURSE TIM
--- NOTE | 2018-08-19 21:30 | NUR ---
RECEIVED REPORT FROM WILDA GONZÁLES FOR CONTINUATION OF CARE.
--- NOTE | 2018-08-19 21:35 | NUR ---
PATIENT COMPLAINED OF TREMORS AND REQUESTING FOR SLEEPING PILL. ATIVAN 1 MG IVP GIVEN ORDERED. WILL CONTINUE TO MONITOR.
[2018-08-20 05:33] VITALS: BP 108/54
--- NOTE | 2018-08-20 06:31 | NUR ---
PATIENT AWAKE IN BED. RESPIRATION EVEN AND UNLABORED, ON ROOM AIR. COMPLAINED OF RUQ ABDOMINAL PAIN, PS 10/10. MEDICATED WITH TYLENOL 650 MG PO ORDERED. IV SITE NO SIGN OF INFILTRATION. ON 1:1 SITTER FOR SAFETY. ASSISTED WITH NEEDS. SAFETY OBSERVED. PLACED BED IN THE LOWEST POSITION. SIDERAILS PADDED AT ALL TIMES. PLACED CALL LIGHT WITHIN REACH AT ALL TIMES.
[2018-08-20 06:37] LABS: PLATELET COUNT 183 x10^3mcL (130-400)
--- NOTE | 2018-08-20 07:18 | NUR ---
RECEIVED PT FROM SHIFT NURSE A/OX4. NO ACUTE DISTRESS NOTED. DENIES SUICIDAL IDEATION. SEIZURE PRECAUTIONS IN PLACE. IV PATENT AND INFUSING WELL. UNDER CLOSE OBSERVATION. SIDE RAIL UP X2 AND CALL LIGHT WITHIN REACH. WILL CONTINUE TO MONITOR.
[2018-08-20 07:32] LABS: ALKALINE PHOSPHATASE 39 U/L (46-116); ALT/SGPT 20 U/L (16-63); AST/SGOT 16 U/L (15-37); BILIRUBIN TOTAL 0.1 mg/dL (0.20-1.00); CARBON DIOXIDE 24.6 mmol/L (21-32); CHLORIDE SERUM 105 mmol/L (98-107); CREATININE SERUM 0.9 mg/dL (0.7-1.3); GFR1 > 60 mL/min; GLUCOSE SERUM 95 mg/dL (74-106); MAGNESIUM 2.1 mg/dL (1.8-2.4); PHOSPHOROUS 3.6 mg/dL (2.5-4.9); POTASSIUM SERUM 4.1 mmol/L (3.5-5.1); SODIUM SERUM 139 mmol/L (136-145); TOTAL PROTEIN, SERUM 6.3 g/dL (6.4-8.2)
[2018-08-20 07:33] LABS: ALBUMIN 3.3 g/dL (3.4-5.0)
[2018-08-20 08:28] LABS: BASOPHIL % 0 % (0-2)
--- NOTE | 2018-08-20 10:00 | NUR ---
PT ASLEEP BUT AROUSABLE. NO ACUTE DISTRESS. UNDER CLOSE OBSERVATION. CALL LIGHT WITHIN REACH. WILL CONTINUE TO MONITOR.
--- NOTE | 2018-08-20 12:28 | NUR ---
PT C/O OF BACK PAIN 05/02. MEDICATED WITH TYLENOL ORDERED. WILL CONTINUE TO MONITOR
[2018-08-20 12:40] VITALS: BP 107/69
--- NOTE | 2018-08-20 13:12 | NUR ---
PT EXPRESSED RELIEF OF BACK PAIN 11/30. WILL CONTINUE TO MONITOR.
[2018-08-20 15:34] LABS: rbc morphology (normal/abnorm) ABNORMAL (NORMAL)
[2018-08-20 15:35] LABS: ovalocyte/elliptocyte 1+; schistocyte (helmet cell) 1+; target cell (codocyte) 1+
--- NOTE | 2018-08-20 16:09 | NUR ---
PT RESTING IN BED WATCHING TV. NO ACUTE DISTRESS NOTED. CALL LIGHT WITHIN REACH. WILL CONTINUE TO MONITOR.
[2018-08-20 18:19] VITALS: BP 112/76
--- NOTE | 2018-08-20 18:25 | NUR ---
PT C/O OF BACK PAIN 05/02. MEDICATED WITH TYELNOL ORDERED.
--- NOTE | 2018-08-20 18:38 | NUR ---
PT AWAKE AND ALERT RESTING IN BED IN NO ACUTE DISTRESS. SEIZURE PRECAUTIONS IN PLACE. UNDER CLOSE OBSERVATION. IV PATENT AND INFUSING WELL. CALL LIGHT WITHIN REACH. WILL BE ENDORSED.
[2018-08-20 21:17] VITALS: BP 126/84
--- NOTE | 2018-08-20 22:29 | NUR ---
AT 2001 RECEIVED PT IN BED AAOX4 NO ACUTE DISTRESS NOTED , LUNG SOUNDS CTA ABD SOFT , PT DENY SUICIDAL IDEATION AT THE MOMENT , SITTER AT THE BEDSIDE FOR SAFETY , SIDE RAILS PADDED NO SZ ACTIVITY NOTED, PIV INTACT INFUSING WELL . WILL CON'T TO MONITOR PT , ATIVAN 1MG GIVEN IVP FOR ANXIETY .
--- NOTE | 2018-08-21 00:22 | NUR ---
PATIENT'S PLAN OF CARE WAS DISCUSSED AND REVIEWED WITH [employer] TEAM LEADER: AMANDA MCGREGOR
[2018-08-21 05:40] VITALS: BP 120/80
--- NOTE | 2018-08-21 06:01 | NUR ---
I HAVE REVIEWED THE DATA COLLECTION BY [facility] (NAME): AMANDA MCGREGOR ENTERED ON (DATE/TIME): 08/20/18 I CONCUR WITH THE DATA AND ANY EXCEPTIONS OR COMMENTS ARE LISTED BELOW:
--- NOTE | 2018-08-21 06:28 | NUR ---
PT'S IN BED AWAKE SITTER AT THE BEDSIDE FOR SAFETY , ALL DUE MEDS GIVEN NO REACTION NOTED, PIV INTACT INFUSING WELL , NO SZ ACTIVITY NOTED, PT DENY SUICIDAL IDEATION AT THE MOMENT
[2018-08-21 06:49] LABS: PLATELET COUNT 182 x10^3mcL (130-400)
--- NOTE | 2018-08-21 07:05 | NUR ---
SEEN RESTING WITH EYES CLOSED. BREATHING E/U ON ROOM AIR. NO ANY SEIZURE ACTIVITY NOTED. ON HOLD, SITTER 1:1 AT BEDSIDE. TELE#10 NSR. IVF LR TO LT FOOT INFUSING WELL AT 80ML/HR. FALL AND SEIZURE PRECAUTION ON, SIDERAILS AND PADDED UP.
[2018-08-21 07:23] LABS: CALCIUM 9.2 mg/dL (8.5-10.1); CARBON DIOXIDE 28.9 mmol/L (21-32); CHLORIDE SERUM 104 mmol/L (98-107); CREATININE SERUM 0.9 mg/dL (0.7-1.3); GFR1 > 60 mL/min; GLUCOSE SERUM 130 mg/dL (74-106); POTASSIUM SERUM 3.4 mmol/L (3.5-5.1); SODIUM SERUM 140 mmol/L (136-145)
[2018-08-21 08:05] LABS: RED CELL DISTRIBUTION WIDTH 25.5 % (11.5-14.5)
[2018-08-21 08:25] VITALS: BP 121/75
--- NOTE | 2018-08-21 09:24 | NUR ---
AM MEDS GIVEN, PATIENT STATED THAT HE HAS BEEN HAVING ABDOMINAL PAIN AND TYLENOL PO GIVEN IS NOT HELPING AT ALL. DENIES NAUSEA OR VOMITING. DENIES ANY THOUGHT OF HURTING HIMSELF OR OTHERS AT THIS TIME. ASKED FOR SPRITE STATED FINISHED HLAF OF BREAKFAST.
[2018-08-21 13:27] LABS: BAND NEUTROPHIL 1 % (0-10); MONOCYTE 9 % (0-7); SEGMENTED NEUTROPHILS 66 % (37-75)
[2018-08-21 13:28] LABS: PLATELET MORPHOLOGY LARGE PLATELET SEEN; ovalocyte/elliptocyte 1+; rbc morphology (normal/abnorm) ABNORMAL (NORMAL); schistocyte (helmet cell) 1+; target cell (codocyte) 2+
[2018-08-21 13:30] VITALS: BP 136/91
--- NOTE | 2018-08-21 14:42 | NUR ---
STATED FEELING SO ANXIOUS AND ASKED FOR MEDICINE FOR RELAXING, ATIVAN 1MG IVP GIVEN.
[2018-08-21 17:11] VITALS: BP 115/81
--- NOTE | 2018-08-21 18:07 | NUR ---
RESTING QUIETLY IN BED EASILY TO AROUSE, SPEECH SOFT AND SLOW APPROPRIATELY, DENIES ANY CURRENT SUICIDAL IDEATIONS OR ANY THOUGHTS OF HURTING HIMSELF OR OTHERS. ATIVAN 1MG IV GIVEN X1 FOR RELAXATION PER PATIENT'S REQUESTED, EFFECTIVE WELL. IVF LR TO RLE ACESS INFUSING WELL. ON HOLD.
--- NOTE | 2018-08-21 19:49 | NUR ---
RECEIVED PT IN BED AAOX4 NO ACUTE DISTRESS NOTED, PT C/O ABD PAIN , REFUSED TYLENOL WANT SOMETHING STRONGER THAT TYLENOL , ABD SOFT BS ACTIVE X4, LUNG SOUNDS CTA , NO RESP DITRESS NOTED,PT DENY SUICIDAL IDEATION AT THE MOMENT , SITTER AT THE BEDSIDE FOR SAFETY , NO SZ ACTIVITY NOTED, SIDE RAILS PADDED FOR SAFETY . CALL LIGHT WITHIN PT';S REACH , WILL CON'T TO MONITOR AND ASSIST PT WITH CARE .
--- NOTE | 2018-08-21 19:53 | NUR ---
PATIENT'S PLAN OF CARE WAS DISCUSSED AND REVIEWED WITH CAN FILLING ROOM SWEEPER:AMANDA MCGREGOR
--- NOTE | 2018-08-21 19:55 | NUR ---
I HAVE REVIEWED THE DATA COLLECTION BY [facility] (NAME):AMANDA MCGREGOR ENTERED ON (DATE/TIME):08/21/18 I CONCUR WITH THE DATA AND ANY EXCEPTIONS OR COMMENTS ARE LISTED BELOW:
[2018-08-21 23:24] VITALS: BP 134/78
--- NOTE | 2018-08-21 23:40 | NUR ---
POST ATIVAN PT DENY ANXIETY.
--- NOTE | 2018-08-22 06:41 | NUR ---
PT REFUSED TO HAVE LAB DONE AT THE MOMENT WOULD RATHER HAVE IT DONE AT 8AM , ALL DUE MEDS GIVEN NO REACTION NOTED, PIV INTACT INFUSING WELL , TELE NSR , SITTER AT THE BEDSIDE DENY SUICIDAL IDEATION , NO SZ ACTIVITY NOTED .
--- NOTE | 2018-08-22 08:07 | NUR ---
AT 0710 - RECEIVED PATIENT FROM NIGHT NURSE. SLEEPING; RESPIRATIONS REGULAR. MONITOR SHOWING SINUS RHYTHM; RATE 80'S. IV IN R FOOT INFUSING LR AT 80 ML/HR AT 0750 - PATIENT AWAKE, ALERT AND ORIENTED. APPEARS CALM. SITTING UP IN BED EATING BREAKFAST.
[2018-08-22 10:08] VITALS: BP 112/72
--- NOTE | 2018-08-22 13:32 | NUR ---
AT 1145 - HAS BEEN SEEN AND CLEARED BY DR MILLS. AT 1230 - PATIENT REFUSED TO TAKE LIBRIUM SCHEDULED
--- NOTE | 2018-08-22 14:19 | NUR ---
PATIENT SAID HE WANTED TO GO HOME DR FONTAINE HAD TOLD HIM HE COULD BE DISCHARGED. CALL PLACED FOR DR ORTEGA. PER TELEPHONE WITH DR ORTEGA. INFORMED THAT PATIENT HAD REFUSED MIDDAY LIBRIUM. DR WILL PUT IN DISCHARGE ORDERS.
[2018-08-22 14:25] VITALS: BP 112/72
[2018-08-22 14:43] VITALS: BP 112/72
--- NOTE | 2018-08-22 15:42 | NUR ---
AT 1445 - PATIENT REQUESTED BUS PASS X 2. SPOKE WITH SARAY HICKEY. SHE WILL PROVIDE BUS PASSES. IV INFUSION DISCONTINUED. TAKEN OFF CARDIAC MONITORING. AT 1500 - IV CATHETER REMOVED INTACT. PATIENT AMBULATED IN HALLWAY. AT 1530 - PRINTED DISCHARGE INSTRUCTIONS GIVEN AND EXPLAINED TO PATIENT. ENCOURAGED TO FOLLOW-UP WITH PCP AND HIS PSYCHIATRIST. PROVIDED WITH 2 BUS PASSES. DISCHARGED HOME, ALONE, AMBULATORY. ESCORTED AMBULATORY TO FRONT LOBBY BY NURSE.
== END 2018-08-22 15:32 | disposition home or self-care (01) | DRG 775 ==
LOC: ED 14:03 → MU 19:34 → DU 19:34 → MU 20:54 → DU 21:07
PROVIDERS: Emergency Medicine; Internal Medicine Pulmonary Disease; ADMIT Internal Medicine Pulmonary Disease
DX: F10.231 Alcohol dependence with withdrawal delirium (principal); F10.221 Alcohol dependence with intoxication delirium; G92 Toxic encephalopathy; R45.851 Suicidal ideations; F31.9 Bipolar disorder, unspecified; T51.0X1A Toxic effect of ethanol, accidental (unintentional), initial encounter; Z68.21 Body mass index [BMI] 21.0-21.9, adult; Z59.0 Homelessness; Y90.8 Blood alcohol level of 240 mg/100 ml or more; Y92.89 Other specified places as the place of occurrence of the external cause
CPT/HCPCS: 83880; 84439; 87804; G0480; J2060; J3490; J7030; J7120; Q0092; Q0163

== ENCOUNTER 2018-09-25 14:35 | Emergency (ER) | payer MEDICAID ==
[~2018-09-25] VITALS: Ht 167.6 cm; Wt 63.5 kg
[2018-09-25 14:45] VITALS: Ht 167.6 cm; Wt 63.5 kg
[2018-09-25 16:38] LABS: CALCIUM 9.1 mg/dL (8.5-10.1); CARBON DIOXIDE 24.5 mmol/L (21-32); CHLORIDE SERUM 107 mmol/L (98-107); CREATININE SERUM 0.8 mg/dL (0.7-1.3); GFR1 > 60 mL/min; GLUCOSE SERUM 100 mg/dL (74-106); POTASSIUM SERUM 3.9 mmol/L (3.5-5.1); SODIUM SERUM 144 mmol/L (136-145)
[2018-09-25 16:44] LABS: ALBUMIN 3.8 g/dL (3.4-5.0); ALKALINE PHOSPHATASE 48 U/L (46-116); ALT/SGPT 22 U/L (16-63); AST/SGOT 15 U/L (15-37); LIPASE 319 IU/L (73-393); TOTAL PROTEIN, SERUM 7.4 g/dL (6.4-8.2)
[2018-09-25 16:46] LABS: PLATELET COUNT 218 x10^3mcL (130-400)
[2018-09-25 16:47] LABS: RED CELL DISTRIBUTION WIDTH 27.8 % (11.5-14.5)
[2018-09-25 16:56] LABS: BAND NEUTROPHIL 1 % (0-10); MONOCYTE 5 % (0-7); SEGMENTED NEUTROPHILS 54 % (37-75)
[2018-09-25 17:00] LABS: PLATELET MORPHOLOGY LARGE PLATELET SEEN; ovalocyte/elliptocyte 1+; rbc morphology (normal/abnorm) ABNORMAL (NORMAL)
[2018-09-25 17:01] LABS: target cell (codocyte) 1+
[2018-09-25 17:54] LABS: microscopic required? NO
[2018-09-25 18:14] LABS: UA SPECIFIC GRAVITY 1.025 (1.005-1.035); urine erythrocyte NEGATIVE (NEGATIVE)
[2018-09-25 18:27] LABS: AMPHETAMINE QUAL UR NONE DETECTED (See below)
[2018-09-26 07:05] VITALS: BP 136/84
== END 2018-09-26 07:06 | disposition home or self-care (01) ==
LOC: ED 14:35
PROVIDERS: Emergency Medicine
DX: F10.129 Alcohol abuse with intoxication, unspecified (principal); F32.9 Major depressive disorder, single episode, unspecified; Z86.73 Personal history of transient ischemic attack (TIA), and cerebral infarction without residual deficits; Z88.6 Allergy status to analgesic agent; Z91.018 Allergy to other foods
CPT/HCPCS: G0480; J2930; J3490; J7030

== ENCOUNTER 2019-03-08 07:27 | Emergency (ER) | payer OTHER, MEDICAID ==
[~2019-03-08] VITALS: Ht 162.6 cm; Wt 68.0 kg
[2019-03-08 07:37] VITALS: Ht 162.6 cm; Wt 68.0 kg
[2019-03-08 08:19] LABS: CALCIUM 9.4 mg/dL (8.5-10.1); CARBON DIOXIDE 27.6 mmol/L (21-32); CHLORIDE SERUM 110 mmol/L (98-107); CREATININE SERUM 0.9 mg/dL (0.7-1.3); GFR1 > 60 mL/min; GLUCOSE SERUM 100 mg/dL (74-106); POTASSIUM SERUM 4.1 mmol/L (3.5-5.1); SODIUM SERUM 149 mmol/L (136-145)
[2019-03-08 08:26] LABS: ALBUMIN 3.8 g/dL (3.4-5.0); ALKALINE PHOSPHATASE 38 U/L (46-116); ALT/SGPT 31 U/L (16-63); AST/SGOT 26 U/L (15-37); BILIRUBIN TOTAL 0.2 mg/dL (0.20-1.00)
[2019-03-08 08:55] LABS: PLATELET COUNT 265 x10^3mcL (130-400); RED CELL DISTRIBUTION WIDTH 28.7 % (11.5-14.5)
[2019-03-08 08:57] LABS: ATYPICAL LYMPH 1 %; BAND NEUTROPHIL 0 % (0-10); MONOCYTE 11 % (0-7); SEGMENTED NEUTROPHILS 73 % (37-75)
[2019-03-08 08:58] LABS: BASOPHIL 0 % (0-2); ovalocyte/elliptocyte 1+; rbc morphology (normal/abnorm) ABNORMAL (NORMAL)
[2019-03-08 08:59] LABS: target cell (codocyte) 1+
[2019-03-08 10:12] LABS: AMPHETAMINE QUAL UR NONE DETECTED (See below)
[2019-03-08 10:22] LABS: microscopic required? NO
[2019-03-08 10:26] LABS: UA SPECIFIC GRAVITY 1.015 (1.005-1.035); urine erythrocyte NEGATIVE (NEGATIVE)
[2019-03-08 18:17] VITALS: BP 101/59
== END 2019-03-08 17:35 | disposition home or self-care (01) ==
LOC: ED 07:27
PROVIDERS: Emergency Medicine
DX: F10.129 Alcohol abuse with intoxication, unspecified (principal); F32.9 Major depressive disorder, single episode, unspecified; F17.210 Nicotine dependence, cigarettes, uncomplicated; F20.9 Schizophrenia, unspecified; Z91.018 Allergy to other foods; Z88.6 Allergy status to analgesic agent
CPT/HCPCS: 36415; 99406; G0480; Q0162

== ENCOUNTER 2019-09-21 20:32 | Emergency (ER) | payer OTHER ==
[~2019-09-21] VITALS: Ht 167.6 cm; Wt 74.8 kg
[2019-09-21 20:34] VITALS: Ht 167.6 cm; Wt 74.8 kg
[2019-09-21 22:18] LABS: AMPHETAMINE QUAL UR NONE DETECTED (See below)
[2019-09-22 06:37] VITALS: BP 139/85
== END 2019-09-22 06:37 | disposition home or self-care (01) ==
LOC: ED 20:32
PROVIDERS: Specialist
DX: F10.129 Alcohol abuse with intoxication, unspecified (principal); F31.9 Bipolar disorder, unspecified; J02.9 Acute pharyngitis, unspecified; R06.02 Shortness of breath; N50.0 Atrophy of testis; F20.9 Schizophrenia, unspecified; I48.91 Unspecified atrial fibrillation; Z88.6 Allergy status to analgesic agent; Z91.018 Allergy to other foods; Z86.73 Personal history of transient ischemic attack (TIA), and cerebral infarction without residual deficits; Y90.9 Presence of alcohol in blood, level not specified
CPT/HCPCS: G0480; J0171; J1200; J2060; J2930; J3490; J7030

== ENCOUNTER 2019-11-30 12:24 | Inpatient (IN) | payer OTHER ==
[~2019-11-30] VITALS: Ht 180.3 cm; Wt 59.1 kg
[2019-11-30 12:31] VITALS: Ht 180.3 cm; Wt 59.1 kg
[2019-11-30 12:57] LABS: PLATELET COUNT 168 x10^3mcL (130-400)
[2019-11-30 13:17] LABS: CALCIUM 9.2 mg/dL (8.5-10.1); CARBON DIOXIDE 31.4 mmol/L (21-32); CHLORIDE SERUM 105 mmol/L (98-107); CREATININE SERUM 0.8 mg/dL (0.7-1.3); GFR1 > 60 mL/min; GLUCOSE SERUM 108 mg/dL (74-106); POTASSIUM SERUM 3.6 mmol/L (3.5-5.1); RED CELL DISTRIBUTION WIDTH 28.5 % (11.5-14.5); SODIUM SERUM 145 mmol/L (136-145)
[2019-11-30 13:23] LABS: ALBUMIN 4.1 g/dL (3.4-5.0); ALKALINE PHOSPHATASE 44 U/L (46-116); ALT/SGPT 44 U/L (16-63); AST/SGOT 30 U/L (15-37); BILIRUBIN TOTAL 0.2 mg/dL (0.20-1.00); MAGNESIUM 1.9 mg/dL (1.8-2.4); PHOSPHOROUS 4.7 mg/dL (2.5-4.9); TOTAL PROTEIN, SERUM 7.2 g/dL (6.4-8.2)
[2019-11-30 13:56] LABS: MONOCYTE 8 % (0-7); SEGMENTED NEUTROPHILS 48 % (37-75); ovalocyte/elliptocyte 1+; rbc morphology (normal/abnorm) ABNORMAL (NORMAL)
[2019-11-30 15:44] VITALS: BP 138/115
[2019-11-30 20:29] LABS: AMPHETAMINE QUAL UR NONE DETECTED (See below)
[2019-11-30 20:36] VITALS: BP 103/71
[2019-12-01 05:34] VITALS: BP 128/80
[2019-12-01 07:10] LABS: CALCIUM 9.1 mg/dL (8.5-10.1); CHLORIDE SERUM 101 mmol/L (98-107); CREATININE SERUM 0.8 mg/dL (0.7-1.3); GFR1 > 60 mL/min; GLUCOSE SERUM 123 mg/dL (74-106); MAGNESIUM 1.5 mg/dL (1.8-2.4); POTASSIUM SERUM 3.5 mmol/L (3.5-5.1); SODIUM SERUM 138 mmol/L (136-145)
[2019-12-01 08:34] VITALS: BP 124/70
[2019-12-01 10:02] LABS: PLATELET COUNT 171 x10^3mcL (130-400)
[2019-12-01 10:08] LABS: RED CELL DISTRIBUTION WIDTH 27.5 % (11.5-14.5)
[2019-12-01 11:18] LABS: BAND NEUTROPHIL 0 % (0-10); BASOPHIL 0 % (0-2); MONOCYTE 7 % (0-7); SEGMENTED NEUTROPHILS 81 % (37-75)
[2019-12-01 11:19] LABS: PLATELET MORPHOLOGY PLATELETS DECREASED; rbc morphology (normal/abnorm) ABNORMAL (NORMAL)
[2019-12-01 12:42] VITALS: BP 130/80
[2019-12-01 14:22] VITALS: BP 130/80
[2019-12-01 20:35] VITALS: BP 135/81
[2019-12-02 07:24] VITALS: BP 139/89
[2019-12-02 08:45] VITALS: BP 131/80
[2019-12-02] MEDS ORDERED: ZITHROMAX Z-PA250 MG PO (08:56)
[2019-12-02 10:28] VITALS: BP 131/80
== END 2019-12-02 11:06 | disposition home or self-care (01) | DRG 137 ==
LOC: ED 12:24 → DU 14:39
PROVIDERS: Emergency Medicine; Family Medicine; ADMIT Hospitalist
DX: J69.0 Pneumonitis due to inhalation of food and vomit (principal); E46 Unspecified protein-calorie malnutrition; F20.9 Schizophrenia, unspecified; E83.42 Hypomagnesemia; T78.1XXA Other adverse food reactions, not elsewhere classified, initial encounter; F10.129 Alcohol abuse with intoxication, unspecified; F43.10 Post-traumatic stress disorder, unspecified; F31.9 Bipolar disorder, unspecified; Z88.6 Allergy status to analgesic agent; Z91.018 Allergy to other foods; Z86.73 Personal history of transient ischemic attack (TIA), and cerebral infarction without residual deficits; Z90.49 Acquired absence of other specified parts of digestive tract; Z68.1 Body mass index [BMI] 19.9 or less, adult; Y90.8 Blood alcohol level of 240 mg/100 ml or more; Y92.89 Other specified places as the place of occurrence of the external cause
CPT/HCPCS: 83880; G0378; G0480; J0171; J0456; J0696; J1100; J2060; J2920; J3490; J7030; J7060; Q0092; Q0163

== ENCOUNTER 2020-01-17 12:36 | Emergency (ER) | payer MEDICAID ==
[~2020-01-17] VITALS: Ht 167.6 cm; Wt 63.5 kg
[~2020-01-17 12:36] MED LIST changes: +ZITHROMAX Z-PA250 MG PO
[2020-01-17 12:49] VITALS: Ht 167.6 cm; Wt 63.5 kg
[2020-01-17 17:50] VITALS: BP 134/101
== END 2020-01-17 17:51 | disposition home or self-care (01) ==
LOC: ED 12:36
DX: T78.1XXA Other adverse food reactions, not elsewhere classified, initial encounter (principal); Z88.6 Allergy status to analgesic agent; Z91.018 Allergy to other foods; Z86.73 Personal history of transient ischemic attack (TIA), and cerebral infarction without residual deficits; I48.91 Unspecified atrial fibrillation; Z86.2 Personal history of diseases of the blood and blood-forming organs and certain disorders involving the immune mechanism; X58.XXXA Exposure to other specified factors, initial encounter